=== PATIENT | female | born 2000 | race Two or more races ===

== ENCOUNTER 2024-08-01 01:07 | Emergency (ER) | payer OTHER ==
[~2024-08-01] VITALS: Ht 167.6 cm; Wt 107.3 kg
[2024-08-01 02:25] VITALS: BP 118/85; PULSE 83; RESP 19; TEMP 97.9; O2SAT 97
[2024-08-01] MEDS ORDERED: AZIT500T66 PO (03:01)
--- NOTE | 2024-08-01 03:01 | ED.PDOC ---
Eye-HPI HPI Comments This is a 24-year-old female presents to the ED chief complaint flu-like s ymptoms x1 week. Patient is complaining of cough, fever, nasal congestion, and bilateral ear pain right greater than left. Reports [id number] Tylenol or Motrin with some relief. Denies nausea, vomiting, diarrhea, shortness of breath, difficulty breathing, chest pain, recent travel or ill contacts. Chief Complaint: Flu like Time Seen by MD: 01:10 Reviewed Notes: Nurses Notes, Medications, Allergies Allergies: Coded Allergies: Amoxicillin (Verified Allergy, Unknown, 08/01/24) Sulfamethoxazole w/Trimethoprim (Verified Allergy, Unknown, 08/01/24) Home Meds Active Scripts Azithromycin (Azithromycin) 500 Mg Tab, 1 TAB PO DAILY for 4 Days, #4 TAB Prov:LOIS TOBIN 08/01/24 Information Source: Patient Mode of Arrival: Ambulatory Past Medical History PAST MEDICAL HISTORY: Denies Surgical History: Denies all surgeries PEOPLE GREETER History: No Pertinent PEOPLE GREETER History Family History Family History: Reviewed,noncontributory to illness Social History Smoker: Non-Smoker Alcohol: Denies ETOH Use Drugs: Denies Drug Use Constitutional: reports: fever; denies: chills, diaphoresis, fatigue, malaise, sweats, weakness, others EENTM: reports: ear pain, nasal discharge, throat pain; denies: blurred vision, double vision, ear bleeding, ear discharge, ear drainage, ear ringing, eye pain, eye redness, hearing loss, mouth pain, mouth swelling, nose bleeding, nose congestion, nose pain, photophobia, tearing, throat swelling, voice changes, others Respiratory: reports: cough; denies: hemoptysis, orthopnea, SOB at rest, sh ortness of breath, SOB with excertion, stridor, wheezing, others Cardiovascular: denies: chest pain, dizzy spells, diaphoresis, Dyspnea on exertion, edema, irregular heart beat, left arm pain, lightheadedness, palpitations, PND, syncope, others Gastrointestinal: denies: abdomen distended, abdominal pain, blood streaked bowels, constipated, diarrhea, dysphagia, difficulty swallowing, hematemesis, melena, nausea, poor appetite, poor fluid intake, rectal bleeding, rectal pain, vomiting, others Genitourinary: denies: abnormal vagina bleeding, burning, dyspareunia, dysuria, flank pain, frequency, hematuria, incontinence, pain, , vagina discharge, urgency, others Neurological: denies: dizziness, fainting, headache, left sided numbness, left sided weakness, numbness, paresthesia, pre-existing deficit, right sided numbness, right sided weakness, seizure, speech problems, tingling, tremors, weakness, others Musculoskeletal: denies: back pain, gout, joint pain, joint swelling, muscle pain, muscle stiffness, neck pain, others Integumetry: denies: bruises, change in color, change in hair/nails, dryness, laceration, lesions, lumps, rash, wounds, others Allergic/Immunocompromised: denies: Difficulty Healing, Frequent Infections, Hives, Itching, others Hematologic/Lymphatic: denies: anemia, blood clots, easy bleeding, easy bruising, swollen glands, others Endocrine: denies: excessive hunger, excessive sweating, excessive thirst, excessive urination, flushing, intolerance to cold, intolerance to heat, unexplained weight gain, unexplained weight loss, others Psychiatric: denies: anxiety, bipolar disorder, depression, hopeless, panic disorder, schizophrenia, sleepless, suicidal, others Physical Exam General Appearance: No Apparent Distress, Normal HEENT: Pharyngeal Erythema, TM Abnormal (L) (TM intact no edema or erythema canal with mild erythema without edema the), TM Abnormal (R) (TM bulging and erythemic intact without drainage ear canal clear no edema or erythema noted.) Neck: Full Range of Motion, Non-Tender Respiratory: Lungs Clear, No Accessory Muscle Use, No Respiratory Distress, Normal Breath Sounds Cardiovascular: No Edema, No JVD, No Murmur, No Gallop, Normal Peripheral Pulses, Regular Rate/Rhythm Breast Exam: Deferred Gastrointestinal: No Organomegaly, Non Tender, No Pulsatile Mass, Normal Bowel Sounds, Soft Genitalia: Deferred Pelvic: Deferred Rectal: Deferred Extremities: Normal capillary refill, Normal inspection, Normal range of motion, Non-tender, No pedal edema Musculoskeletal : Apperance: Normal Neurologic: Alert, drama director II-XII nml as Tested, No Motor Deficits, Normal Affect, Normal Mood, No Sensory Deficits Cerebellar Function: Normal Reflexes: Normal Skin: Dry, Normal Color, Warm Lymphatic: No Adenopathy Was a procedure done? Was a procedure done?: No EENT DIFF Eye: N/A Ear: Cerumen Impaction, Foreign Body, Otitis Externa, Barotrauma, Otitis Media, Perforation, Pharyngitis, Sinusitis Sore Throat: Peritonsillar Abscess, Peritonsillar Cellulitis, Streptococcal X-Ray, Labs, Meds, VS Vital Signs Date Time Temp Pulse Resp B/P (MAP) Pulse Ox O2 Delivery O2 Flow Rate FiO2 08/01/24 02:25 97.9 83 19 118/85 (96) 97 97.9 08/01/24 02:25 83 19 97 Room Air 08/01/24 01:21 17 97 Room Air 08/01/24 01:21 97.6 91 17 137/86 (103) 97 Current Medications Medications (Trade) Dose Ordered Sig/Sruthi Route Start Time Stop Time Status Last Admin Dexamethasone Sodium Phosphate (Decadron Injection) 10 mg ONCE ONCE IM 08/01/24 03:00 08/01/24 03:01 DC 08/01/24 03:04 Azithromycin (Zithromax Tablet) 500 mg ONCE ONCE PO 08/01/24 03:00 08/01/24 03:01 DC 08/01/24 03:04 X-Ray, Labs, Meds, VS Comment Patient given Decadron 10 mg IM reports improvement in pain requesting discharge at this time. Patient also given 1st dose of antibiotic azithromycin 500 mg, she reports history of penicillin and relatives with anaphylactic reaction. Script azithromycin 500 mg x 4 days. Advise to follow up with PCP in 2-3 days if no improvement for re-evaluation of the ear. Advised to rest increase p.o. fluids with electrolytes [id number] Tylenol or Motrin as needed for the pain or fever. ER return precautions given patient indicated understanding agrees with discharge plan of care. Time of 1ST Reevaluation: 03:15 Reevaluation 1ST: Improved Patient Education/Counseling: Diagnosis, Treatment, Prognosis, Need For Follow Up Family Education/Counseling: No Family Present Departure 1 Departure Time of Disposition: 03:20 Impression: Primary Impression: Otitis media Qualified Codes: H66.90 - Otitis media, unspecified, unspecified ear Disposition: HOME / SELF CARE / HOMELESS Condition: Stable e-Prescriptions Azithromycin (Azithromycin) 500 Mg Tab 1 TAB PO DAILY for 4 Days, #4 TAB Prov: LOIS TOBIN FLIGHT MANAGER 08/01/24 Discharged With: Self Critical Care Note Critical Care Time?: No Stability Stability form required: LOIS Hinton Aug 01, 2024 03:01
[2024-08-01] MEDS: AZITHROMYCIN 250 MG TAB PO ONE (03:04)
[2024-08-01] MEDS: DexAMETHasone SOD PHOS 10MG/1ML VIAL INJ IM ONE (03:04)
== END 2024-08-01 03:16 | disposition home or self-care (01) ==
LOC: ER 01:07
DX: H66.93 Otitis media, unspecified, bilateral (principal); Z88.0 Allergy status to penicillin; Z88.2 Allergy status to sulfonamides
CPT/HCPCS: 96372; 99283; J1100